=== PATIENT | male | born 2000 | race Caucasian/White ===

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

== ENCOUNTER 2019-01-23 22:20 | Emergency (ER) | payer MEDICAID ==
[2019-01-23 22:38] VITALS: BP 146/79
== END 2019-01-24 00:49 | disposition left against medical advice (07) ==
LOC: ER 22:20
DX: Z53.21 Procedure and treatment not carried out due to patient leaving prior to being seen by health care provider (principal)

== ENCOUNTER 2019-03-10 18:49 | Emergency (ER) | payer MEDICAID ==
[2019-03-10 19:05] VITALS: BP 130/72
--- NOTE | 2019-03-10 20:32 | ER Document Report ---
HPI - HPI Time Seen by Provider: 03/10/19 19:46 Pain Level: 3 Context: Patient is a 18-year-old male presents to the emergency department with a chief complaint of wound recheck. Patient states he had pilonidal cyst surgery back in June and that the wound did not heal until October. Patient states earlier today he developed a intermittent burning to his upper buttocks. Patient states he would like to get checked out to make sure the wound has not opened or is draining. Patient states his significant other would not work for him. Patient denies fever. Patient has no other complaints. - CONSTITUTIONAL Constitutional: DENIES: Fever, Chills Past Medical History - General Information source: Patient - Social History Smoking Status: Never Smoker Frequency of alcohol use: None Drug Abuse: None Lives with: Family Family History: Reviewed & Not Pertinent Patient has suicidal ideation: No Patient has homicidal ideation: No - Past Medical History Cardiac Medical History: Reports: None Pulmonary Medical History: Reports: None EENT Medical History: Reports: None Neurological Medical History: Reports: None Endocrine Medical History: Reports: None Renal/ Medical History: Reports: None. Denies: Hx Peritoneal Dialysis Malignancy Medical History: Reports None GI Medical History: Reports: None Musculoskeletal Medical History: Reports None Skin Medical History: Reports None, Denies Hx MRSA - MRSA RT.HIP 09/14 Psychiatric Medical History: Reports: None Traumatic Medical History: Reports: None Infectious Medical History: Reports: None Past Surgical History: Reports: Hx Oral Surgery - cleft, Other - Pilonidal cyst - Immunizations Immunizations up to date: Yes Hx Diphtheria, Pertussis, Tetanus Vaccination: Yes Vertical Provider Document - CONSTITUTIONAL Agree With Documented VS: Yes Exam Limitations: No Limitations General Appearance: No Apparent Distress - INFECTION CONTROL TRAVEL OUTSIDE OF THE [place] IN LAST 30 DAYS: No - HEENT HEENT: Atraumatic, Normocephalic, PERRLA - RESPIRATORY Respiratory: Breath Sounds Normal, No Respiratory Distress - CARDIOVASCULAR Cardiovascular: Regular Rate, Regular Rhythm - GI/ABDOMEN Gastrointestinal: Abdomen Soft, Abdomen Non-Tender, Normal Bowel Sounds - BACK Notes: Patient has a vertical healed incision measuring about 2-1/2 cm and located between the upper buttocks in the crease. There is no erythema, edema, ecchymosis or drainage. - NEURO Level of Consciousness: Awake, Alert, Appropriate - DERM Integumentary: Warm, Dry, No Rash Course - Re-evaluation Re-evalutation: 03/10/19 20:40 Patient states that he felt a burning sensation in between his buttocks where his pilonidal cyst was located. Patient has no complaints such as severe pain, drainage or fever. Patient states his significant other would not look so he wanted to come to the emergency department to get checked out. The wound is closed and there is no drainage or erythema. Wound is appropriate. - Vital Signs Vital signs: Temp Pulse Resp BP Pulse Ox 97.6 F 100 H 18 130/72 H 96 03/10/19 19:03 03/10/19 19:03 03/10/19 19:03 03/10/19 19:03 03/10/19 19:03 Discharge - Discharge Clinical Impression: Sacral pain Condition: Stable Disposition: HOME, SELF-CARE Additional Instructions: Today you are seen in the emergency department to have your pilonidal cyst incision checked. You have stated you have felt more burning to the area. At this time your incision from a the surgery in June is healing appropriately, the wound is closed, there is no redness or drainage. Please keep an eye on this as it could turn into an infection or a pilonidal cyst that needs to be drained. Please monitor for fever, drainage or worsening signs or symptoms. Referrals: WIL STILL PA-C [Primary Care Provider] - Follow up as needed
== END 2019-03-10 20:38 | disposition home or self-care (01) ==
LOC: ER 18:49
DX: M53.3 Sacrococcygeal disorders, not elsewhere classified (principal); Z86.14 Personal history of Methicillin resistant Staphylococcus aureus infection